=== PATIENT | male | born 1965 | race Caucasian/White ===

== ENCOUNTER 2017-12-19 00:14 | Emergency (ER) | payer SELFPAY ==
[2017-12-19 00:14] VITALS: BMI 25.9
[2017-12-19 00:29] VITALS: BP 149/96; PULSE 75; RESP 16; TEMP 98.4; O2SAT 98
[2017-12-19 01:11] LABS: BASO # 0.1 K/uL (0.0-0.2); BASO % 1.1 % (0.0-2.0); EOS # 0.3 K/uL (0.0-0.7); EOS % 4.1 % (0.0-4.0); HEMOGLOBIN 12.8 g/dL (12.0-18.0); LYMPH # 3.2 K/uL (1.0-4.3); LYMPH % 38.3 % (20.0-40.0); MEAN CELL VOLUME 71.9 fl (80.0-94.0); MEAN PLATELET VOLUME 8.4 fl (7.2-11.7); MONO # 0.8 K/uL (0.0-0.8); NEUT # 3.9 K/uL (1.8-7.0); NEUT % 46.5 % (50.0-75.0); NRBC % 0.1 % (0.0-0.0); RBC 5.56 Mil/uL (4.40-5.90); RED CELL DISTRIBUTION WIDTH 15.6 % (11.5-14.5); WHITE BLOOD COUNT 8.5 K/uL (4.8-10.8)
[2017-12-19 01:21] LABS: ALB/GLOB RATIO 1.2 (1.0-2.1); ALBUMIN 4.1 g/dL (3.5-5.0); ALT/SGPT 32 U/L (21-72); AST/SGOT 21 U/L (17-59); BLOOD UREA NITROGEN 17 mg/dl (9-20); CALCIUM 9.1 mg/dL (8.4-10.2); GFR AFRICAN-AMERICAN > 60; GFR NON-AFRICAN AMERICAN > 60
--- NOTE | 2017-12-19 01:48 | ED PDOC ---
HPI: General Adult Time Seen by Provider: 12/19/17 00:45 Chief Complaint (Nursing): Weakness/Neurological Deficit Chief Complaint (Provider): Weakness/Neurological Deficit History Per: Patient History/Exam Limitations: no limitations Additional Complaint(s): 52 year old male presents to the emergency department with a complaint of a right-sided facial droop since 2099. Reports he developed numbness to the right and noticed he had trouble drinking from the right side of his mouth. States he has had right sided neck pain lately that radiates to the right arm. Denies headache, nausea, vomiting, or dizziness. Past Medical History Reviewed: Historical Data, Nursing Documentation, Vital Signs Vital Signs: Last Vital Signs Temp 98.4 F 12/19/17 00:26 Pulse 75 12/19/17 00:26 Resp 16 12/19/17 00:26 BP 149/96 H 12/19/17 00:26 Pulse Ox 98 12/19/17 04:39 - Medical History PMH: No Chronic Diseases - Surgical History Surgical History: No Surg Hx - Family History Family History: States: Unknown Family Hx - Home Medications Home Medications: Ambulatory Orders Medication Instructions Recorded Loratadine [Claritin] 10 mg PO PRN PRN 03/03/16 Oxycodone HCl/Acetaminophen 1 tab PO Q4 PRN 03/03/16 [Percocet 325 mg-5 mg] Acyclovir [Zovirax] 800 mg PO 5XD #35 tab 12/19/17 Methylprednisolone [Medrol Dosepak] 4 mg PO ASDIR #1 pkg 12/19/17 - Allergies Allergies/Adverse Reactions: Allergies Allergy/AdvReac Type Severity Reaction Status Date / Time pollen AdvReac WHEEZING Uncoded 02/29/16 09:39 Review of Systems ROS Statement: Except As Marked, All Systems Reviewed And Found Negative (As per HPI, otherwise negative) Constitutional: Positive for: Weakness. Negative for: Other (Difficulty ambulating) Gastrointestinal: Negative for: Nausea, Vomiting Musculoskeletal: Positive for: Neck Pain (Right-sided), Arm Pain (right) Neurological: Positive for: Numbness (Right-sided numbness to the face with right-sided facial droop). Negative for: Headache, Dizziness Physical Exam - Reviewed Nursing Documentation Reviewed: Yes Vital Signs Reviewed: Yes - Physical Exam Appears: Positive for: No Acute Distress Head Exam: Positive for: NORMAL INSPECTION Skin: Positive for: Normal Color, Warm, Dry Cardiovascular/Chest: Positive for: Regular Rate, Rhythm. Negative for: Murmur Respiratory: Positive for: Normal Breath Sounds. Negative for: Accessory Muscle Use, Respiratory Distress Gastrointestinal/Abdominal: Positive for: Normal Exam, Soft. Negative for: Tenderness Extremity: Positive for: Normal ROM. Negative for: Pedal Edema Neurologic/Psych: Positive for: Alert, Oriented (x3), Facial Droop (obvious facial droop with flattening of the oral nasolabial fold) - Laboratory Results Result Diagrams: 12/19/17 01:00 12/19/17 01:00 - ECG O2 Sat by Pulse Oximetry: 98 (RA) Pulse Ox Interpretation: Normal Medical Decision Making Medical Decision Making: Time: 99 Initial Impression: Clinical brito's palsy Initial Plan: --CBC w/ diff --Erythrocyte sedimentation --Methylprednisolone 125 mg IVP --[place] --RPR --Head CT --Reevaluation Time: 199 --Positive for MONO Time: 441 --Head CT FINDINGS: BRAIN: Tiny foci of hyperdensity in the left basal ganglia, most compatible with calcification. There are also faint calcifications in the right basal ganglia. No significant acute abnormality identified. No acute hemorrhage seen within the brain. No acute extra-axial fluid collections visualized. No evidence of significant mass effect within the brain. No CT findings to suggest an acute, large territorial infarct, however, small or early acute infarcts may not be visible on CT. VENTRICLES: No evidence of significant hydrocephalus. BONES/JOINTS: No acute fractures or other acute bony abnormality noted. SOFT TISSUES: No acute abnormality of the visualized soft tissues is seen. SINUSES: Visualized paranasal sinuses appear clear. MASTOID AIR CELLS: Mastoid air cells appear clear. IMPRESSION: - No acute findings seen within the brain. - See above for remaining findings. Time: 449 --Patient is medically stable for discharge and given Rx for Zovirax 800 mg and Medrol Dosepak 4 mg . Advised to return to the emergency department if symptoms worsen or become persistent. Clinical Impression: Brito's palsy Scribe Attestation: Documented by Tana Sanchez acting as a scribe for Jean Martines MD. Scribe Attestation: All medical record entries made by the Scribe were at my direction and personally dictated by me. I have reviewed the chart and agree that the record accurately reflects my personal performance of the history, physical exam, medical decision making, and the department course for this patient. I have also personally directed, reviewed, and agree with the discharge instructions and disposition. Disposition - Clinical Impression Clinical Impression: Brito palsy - Patient ED Disposition Is Patient to be Admitted: No Counseled Patient/Family Regarding: Studies Performed, Diagnosis, Need For Followup, Rx Given - Disposition [facility]errals: [facility] [Outside] Disposition: Routine/Home Disposition Time: 04:50 Condition: STABLE Prescriptions: Acyclovir [Zovirax] 800 mg PO 5XD #35 tab Methylprednisolone [Medrol Dosepak] 4 mg PO ASDIR #1 pkg Forms: [facility] (Tajik) Print Language: PERSIAN
--- NOTE | 2017-12-19 04:42 | CT ---
EXAM: CT Head Without Intravenous Contrast EXAM DATE/TIME: 12/19/2017 12:52 AM CLINICAL HISTORY: 52 years old, male; Signs and symptoms; Numbness / parasthesia; Right; Additional info: Brito palsy TECHNIQUE: Axial computed tomography images of the head/brain without intravenous contrast. All CT scans at this facility use one or more dose reduction techniques, viz.: automated exposure control; ma/kV adjustment per patient size (including targeted exams where dose is matched to indication; i.e. head); or iterative reconstruction technique. Coronal and sagittal reformatted images were created and reviewed. COMPARISON: No relevant prior studies available. FINDINGS: BRAIN: Tiny foci of hyperdensity in the left basal ganglia, most compatible with calcification. There are also faint calcifications in the right basal ganglia. No significant acute abnormality identified. No acute hemorrhage seen within the brain. No acute extra-axial fluid collections visualized. No evidence of significant mass effect within the brain. No CT findings to suggest an acute, large territorial infarct, however, small or early acute infarcts may not be visible on CT. VENTRICLES: No evidence of significant hydrocephalus. BONES/JOINTS: No acute fractures or other acute bony abnormality noted. SOFT TISSUES: No acute abnormality of the visualized soft tissues is seen. SINUSES: Visualized paranasal sinuses appear clear. MASTOID AIR CELLS: Mastoid air cells appear clear. IMPRESSION: - No acute findings seen within the brain. - See above for remaining findings.
== END 2017-12-19 05:14 | disposition home or self-care (01) ==
LOC: H.ER 00:14
DX: G51.0 Bell's palsy (principal)
CPT/HCPCS: 70450; 80053; 85025; 85651; 86308; 96374; 99283; J2930